=== PATIENT | female | born 1980 | race African-American/Black ===

== ENCOUNTER → 2019-04-05 | Outpatient (CLI) | payer MEDICARE, MEDICAID ==
--- NOTE | 2019-04-05 13:40 | KCIC ---
MRI Cervical Spine Without Contrast History: Cervicalgia, neck pain into the right upper extremity for 2 weeks Technique: Multiplanar, multi sequential noncontrast MR imaging was performed of the cervical spine. Comparison: None Findings: Cervical cord caliber is within normal limits without focal signal abnormality. There is no significant marrow edema. There is straightening of the cervical spine, very mild reversal of the lordotic curvature centered near C5. There is negligible anterior spondylolisthesis C4-5. There is mild degenerative disc disease C5-6 and C6-7, mild disc desiccation C4-5. C2-C3: Spinal canal and neural foramina are adequate. C3-C4: Neural foramina and spinal canal are adequate. C4-C5: Neural foramina and spinal canal are adequate. C5-C6: There is very shallow posterior protrusion about 1 to 2 mm AP. Central canal is adequate about 11 mm. Neural foramina are adequate. C6-C7: There is mostly contained extrusion more eccentric to the far right lateral recess, largest dimension estimated about 4 mm AP by up to 6 mm CC by about 8 mm transverse, slightly hyperintense on T2 sequence. There is extent very slightly above the intervertebral disc space. There is indentation upon the ventral thecal sac greater in the far right lateral recess with moderate narrowing of the far right lateral recess and contact of the right ventral cord. Central canal is minimally narrowed to about 9 mm. There is mild narrowing of the proximal inferior right neural foramen, left neural foramen adequate. C7-T1: Spinal canal and neural foramina are adequate. Impression: 1. There is mostly contained extrusion in the far right lateral recess at the C6-7 level with contact of the ventral cord in the far right lateral recess, overall moderate narrowing of the far right lateral recess. There is minimal narrowing of the inferior proximal right C6-7 neural foramen. There is mild degenerative disc disease C5-6 and C6-7. Electronically signed by: Ashok Beck MD (04/05/2019 1:37 PM) [id number]
== END | disposition home or self-care (01) ==
LOC: KCIC MRI 10:45
PROVIDERS: ATTEND Physician Assistant Medical
DX: M43.12 Spondylolisthesis, cervical region (principal); M50.322 Other cervical disc degeneration at C5-C6 level; M50.222 Other cervical disc displacement at C5-C6 level; M48.02 Spinal stenosis, cervical region
CPT/HCPCS: 72141

== ENCOUNTER → 2019-04-16 | Outpatient (CLI) | payer MEDICARE, MEDICAID ==
[~2019-04-16] MED LIST: LINZESS290 MCG PO; LURA60TA PO; METH-38 PO; METO-247 PO; OXYC1TAB15 PO; SENN-37 PO; VARE0.5T PO
--- NOTE | 2019-04-16 15:50 | EKG ---
[facility] [address] [place] [address] Test Date: 2019-04-16 Test Time: 15:44:09 Pat Name: TOÑITO NICHOLE Department: Room: Gender: F [employer]: : [id number] Requested By: TAJ NAJERA Order Number: [id number] Reading MD: Davidson Peralta Measurements Intervals [place] Rate: 109 P: 57 ME: 122 QRS: 28 QRSD: 74 T: 41 QT: 310 QTc: 419 Interpretive Statements SINUS TACHYCARDIA LEFT ATRIAL ABNORMALITY ABNORMAL ECG RI6.01 Unconfirmed report No previous ECG available for comparison Electronically Signed On 04-18-2019 14:12:02 CDT by Davidson Peralta
[2019-04-16 16:10] LABS: BASO # 0.1 x10^3/uL (0.0-0.2); BASO % 1 % (0-3); EOS # 0.1 x10^3/uL (0.0-0.7); EOS % 1 % (0-3); HEMATOCRIT 41.4 % (36.0-47.0); HEMOGLOBIN 13.9 g/dL (12.0-15.5); LYMPH # 3.8 x10^3/uL (1.0-4.8); LYMPH % 31 % (24-48); MEAN CORPUSCULAR HEMOGLOBIN 29 pg (25-35); MEAN CORPUSCULAR HGB CONC 34 g/dL (31-37); MEAN CORPUSCULAR VOLUME 88 fL (79-100); MONO # 0.7 x10^3/uL (0.0-1.1); MONO % 6 % (0-9); NEUT # 7.6 x10^3uL (1.8-7.7); NEUT % 62 % (31-73); PLATELET COUNT 330 x10^3/uL (140-400); RED BLOOD COUNT 4.72 x10^6/uL (3.50-5.40); RED CELL DISTRIBUTION WIDTH 13.7 % (11.5-14.5); WHITE BLOOD COUNT 12.3 x10^3/uL (4.0-11.0)
[2019-04-16 16:21] LABS: PROTHROMBIN TIME PATIENT 11.3 SEC (11.7-14.0)
[2019-04-16 17:10] LABS: ALBUMIN 3.6 g/dL (3.4-5.0); CALCIUM 10.1 mg/dL (8.5-10.1); CREATININE 0.8 mg/dL (0.6-1.0); GFR 97.7; POTASSIUM 3.7 mmol/L (3.5-5.1); TOTAL BILIRUBIN 0.2 mg/dL (0.2-1.0); TOTAL PROTEIN 7.3 g/dL (6.4-8.2)
[2019-04-17 09:18] LABS: HEMOGLOBIN A1C 5.7 % (4.8-5.6)
== END | disposition home or self-care (01) ==
LOC: SURGPAT 13:29
PROVIDERS: ATTEND Neurological Surgery
DX: Z01.818 Encounter for other preprocedural examination (principal); M50.123 Cervical disc disorder at C6-C7 level with radiculopathy; R00.0 Tachycardia, unspecified; I10 Essential (primary) hypertension; Z88.8 Allergy status to other drugs, medicaments and biological substances
CPT/HCPCS: 36415; 80053; 83036; 85025; 85610; 85730; 87641; 93005